=== PATIENT | female | born 1995 | race Caucasian/White ===

== ENCOUNTER 2023-06-16 18:03 | Outpatient (CLI) | payer OTHER ==
--- NOTE | 2023-06-18 13:06 | Ultrasound Report ---
PROCEDURE: Transvaginal INDICATIONS: PELVIC PAIN TECHNIQUE: Real-time endovaginal scanning was performed of the pelvic organs, with image documentation. COMPARISON: None. FINDINGS: Uterus: Uterus is anteverted and normal in size at 6.6 x 3.1 x 4.5 cm. The myometrium is heterogene ous. The endometrium measures 9.4 mm in combined thickness. Ovaries: The right ovary measures 2.7 x 1.9 x 2.5 cm, with a calculated ovarian volume of 6.8 cc. T he left ovary measures 4.0 x 2.2 x 3.2 cm, with a calculated ovarian volume of 14.5 cc. The ovaries have a normal sonographic appearance. Less than 12 follicles can be seen in each ovary. No adnexal masses are seen. There is a dominant 1.6 cm right ovarian follicle and a thick-walled 1.8 cm left ova mily cyst. Other: No pathologic free abdominal or pelvic fluid. IMPRESSION: 1. Thick-walled left ovarian cysts suggesting involuting follicular cyst. 2. Dominant right ovarian follicle within physiologic limits for size in a premenopausal female. Reviewed by: Suyapa Jones MD on 06/18/2023 1:05 PM PST Approved by: Suyapa Jones MD on 06/18/2023 1:05 PM PST Station ID: [id number]
== END 2023-06-16 18:04 | disposition home or self-care (01) ==
LOC: DI 18:03
PROVIDERS: ATTEND Nurse Practitioner Primary Care
DX: R10.2 Pelvic and perineal pain (principal); N83.202 Unspecified ovarian cyst, left side

== ENCOUNTER 2023-08-23 16:01 | Outpatient (CLI) | payer OTHER ==
[2023-08-23] MEDS ORDERED: iohexoL-300 100 ML VIAL ONE (16:20)
[2023-08-23] MEDS ORDERED: DIATRIZOATE MEGLU/DIATRIZO SOD 30 ML BOTTLE PO ONE (16:20)
[2023-08-23] MEDS: iohexoL-300 100 ML VIAL IVP ONE (21:01)
[2023-08-23] MEDS: DIATRIZOATE MEGLU/DIATRIZO SOD 30 ML BOTTLE PO ONE (21:02)
--- NOTE | 2023-08-24 11:46 | CT Report ---
PROCEDURE: Abdomen/Pelvis W INDICATIONS: NAUSEA AND BLOATING CONTRAST: Omni 300 100ml TECHNIQUE: After the administration of intravenous contrast, a CT scan of the abdomen and pelvis was performed. Images were recorded and evaluated at appropriate window settings. Reformats: coronal and sagittal. F or radiation dose reduction, the following was used: automated exposure control, adjustment of mA and /or kV according to patient size. COMPARISON: Pelvic ultrasound dated 06/16/2023. FINDINGS: Image quality: Diagnostic. Lower chest: Unremarkable. Liver: No solid mass. Gallbladder and biliary tree: Surgically absent. No biliary dilation, accounting for post-cholecystec marlyn state. Spleen: No splenomegaly. Pancreas: No pancreatic ductal dilation. Adrenals: No adrenal nodule. Kidneys and ureters: No hydronephrosis. No renal cystic lesion which requires follow up. No solid mas s. Stomach, bowel and peritoneum: There is no bowel obstruction. No abnormal bowel wall thickening or me senteric fat stranding. Appendix is visualized and is within normal limits. No abscess collection. No free fluid of free air. Lymph nodes: No central or retroperitoneal adenopathy. Subcentimeter lymph nodes are noted in right l ower quadrant mesentery measures up to 6 mm in size series 2 image 81. Vessels: No infrarenal aortic aneurysm. PELVIS Reproductive organs: Possible follicular cyst in right ovary is seen measures 1.5 x 1.1 cm in size. S mall left ovarian cyst measures 8 mm in size is also seen.. Bladder: No abnormal wall thickening, accounting for underdistention. Pelvic lymph nodes: No pelvic adenopathy by size criteria. Bones: No aggressive osseous abnormality. Other: No significant ventral or inguinal hernia. IMPRESSION: 1. Subcentimeter lymph nodes in right lower quadrant mesentery, which can be seen in the case of mese nteric adenitis suggest clinical correlation. 2. No bowel obstruction or abnormal bowel wall thickening. Normal appendix. No abscess collection. No free fluid of free air. 3. Small bilateral ovarian cysts as above which was better evaluated on previous pelvic ultrasound [facility]. Reviewed by: Rambo Pardo MD on 08/24/2023 11:45 AM PDT Approved by: Rambo Pardo MD on 08/24/2023 11:45 AM PDT Station ID: [id number]
== END 2023-08-23 16:02 | disposition home or self-care (01) ==
LOC: DI 16:01
PROVIDERS: ATTEND Nurse Practitioner Primary Care
DX: R10.9 Unspecified abdominal pain (principal); R11.0 Nausea; R14.0 Abdominal distension (gaseous); R59.0 Localized enlarged lymph nodes; N83.202 Unspecified ovarian cyst, left side; N83.201 Unspecified ovarian cyst, right side; Z90.49 Acquired absence of other specified parts of digestive tract
CPT/HCPCS: 74177; Q9963; Q9967

== ENCOUNTER 2023-10-13 19:30 | Emergency (ER) | payer OTHER ==
--- NOTE | 2023-10-13 20:53 | ED Physician Documentation ---
History of Present Illness - Stated complaint Stated Complaint: R LEG PX - Chief complaint Chief Complaint: Ext Problem - History obtained from History obtained from: Patient - Additonal information Additional information: 28yF p/w R anterior leg pain after baseball hit it at a baseball game. patient ambulatory without difficulty. pain is 3/10. has not taken any analgesia. denies numbness, weakenss PD PAST MEDICAL HISTORY - Past Medical History Past Medical History: No - Past Surgical History Past Surgical History: Yes General: Cholecystectomy - Allergies Allergies/Adverse Reactions: Allergies Allergy/AdvReac Type Severity Reaction Status Date / Time No Known Drug Allergies Allergy Verified 10/13/23 20:03 - Social History Does the pt smoke?: No Smoking Status: Never smoker Does the pt drink ETOH?: Yes Does the pt have substance abuse?: No PD ED PE NORMAL - Vitals Vital signs reviewed: Yes - General General: Alert and oriented X 3, No acute distress, Well developed/nourished - Derm Derm: Normal color, Warm and dry, Other (no swelling, ecchymosis) - Extremities Extremities: No deformity, No tenderness to palpate, Normal ROM s pain, No edema, Other (csm intact BL LE) Results - Vitals Vitals: Vital Signs - 24 hr 10/13/23 19:57 Temperature 36.8 C Heart Rate 100 Respiratory 16 Rate Blood Pressure 133/87 H O2 Saturation 100 Oxygen O2 Source Room air PD Medical Decision Making - ED course ED course: 28yF p/w R anterior leg pain s/p hit with baseball. low mechanism injury and patient is having mild pain only. exam is benign. Symptomatic care discussed. IM toradol given with improvement. return precautions given. Departure - Departure Disposition: 01 Home, Self Care Clinical Impression: Pain in extremity Condition: Stable Instructions: ED RICE Comments: You were seen in the the ED for baseball hit to the leg. On exam you are unlikely to have fracture. Please return to the ED for new or worsening symptoms or other concerns.
[2023-10-13] MEDS: KETOROLAC 30 MG/ML VIAL IM STA (20:55)
[2023-10-13 21:05] VITALS: BP 133/77; O2SAT 98
== END 2023-10-13 21:02 | disposition home or self-care (01) ==
LOC: ED 19:30
DX: M79.604 Pain in right leg (principal); W21.03XA Struck by baseball, initial encounter
CPT/HCPCS: 96372; 99282; 99283

== ENCOUNTER 2025-02-26 02:54 | Inpatient (IN) ==
[2025-02-26] MEDS ORDERED: LACTATED RINGERS 1,000 ML ONE (03:28)
[2025-02-26 04:04] LABS: HCT - HEMATOCRIT 36.4 % (37.0-47.0); HGB - HEMOGLOBIN 11.8 g/dL (12.0-16.0); MEAN PLATELET VOLUME 11.5 fL (7.9-10.8); NRBC ABSOLUTE COUNT (AUTO) 0.00 x10^3/uL; NUCLEATED RED BLOOD CELLS AUTO 0.0 /100WBC; PLT - PLATELET COUNT 227 10^3/uL (130-450); RED CELL DISTRIBUTION WIDTH 15.7 % (12.0-15.0)
[2025-02-26] MEDS: LACTATED RINGERS 1,000 ML IV ONE (04:30)
[2025-02-26 04:52] LABS: ALT ALANINE AMINOTRANSFERASE 11.0 IU/L (10-60); AST ASPARTATE AMINOTRANSFERASE 13.0 IU/L (10-42); BUN - BLOOD UREA NITROGEN 8.0 mg/dL (6-20); CARBON DIOXIDE - CO2 17.0 mmol/L (21-32); CREATININE 0.5 mg/dL (0.6-1.3); GFR - MDRD 147.0 (>89)
[2025-02-26] MEDS: MORPHINE 10 MG/ML VIAL IM ONE (05:13)
[2025-02-26 06:30] LABS: RUPTURE OF MEMBRANES PLUS POSITIVE (NEGATIVE)
[2025-02-26] MEDS ORDERED: fentaNYL 100 MCG/2 ML VIAL IVP PRN ×2 (06:35→13:42)
[2025-02-26] MEDS ORDERED: hydrALAZINE INJ 20 MG/ML VIAL IVP PRN ×3 (06:35→13:34)
[2025-02-26] MEDS ORDERED: OXYTOCIN/SODIUM CHLORIDE 500 ML IV PRN ×2 (06:35→13:34)
[2025-02-26] MEDS ORDERED: TRANEXAMIC ACID IN NACL 1,000 MG/100 ML BAG IV PRN (06:35)
[2025-02-26] MEDS ORDERED: LABETALOL 20 MG/4 ML SYRINGE IVP PRN ×6 (06:35→13:34)
[2025-02-26] MEDS ORDERED: METHYLERGONOVINE 0.2 MG/ML VIAL IM PRN (06:35)
[2025-02-26] MEDS ORDERED: OXYTOCIN 10 UNIT/ML VIAL IM PRN (06:35)
[2025-02-26] MEDS ORDERED: TERBUTALINE 1 MG/ML VIAL SUBQ PRN (06:35)
[2025-02-26] MEDS ORDERED: CARBOPROST TROMETHAMINE 250 MCG/ML VIAL IM PRN (06:35)
[2025-02-26] MEDS: LACTATED RINGERS 1,000 ML IV SCH (06:59)
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
[2025-02-26] MEDS: AMPICILLIN 2 GM in SODIUM CHLORIDE 0.9% MINIBAG 100 ML IV ONE (07:07)
[2025-02-26] MEDS ORDERED: ROPIVACAINE 0.2% 200 MG/100 ML BAG EP ONE (07:09)
[2025-02-26] MEDS ORDERED: NALBUPHINE 10 MG/ML AMP IVP PRN (08:12)
[2025-02-26] MEDS ORDERED: NALOXONE 0.4 MG/ML VIAL IVP PRN ×3 (08:12→13:42)
[2025-02-26] MEDS ORDERED: ROPIVACAINE 0.2% 200 MG/100 ML BAG EP PRN (08:12)
[2025-02-26] MEDS ORDERED: METOCLOPRAMIDE 10 MG/2 ML VIAL IVP PRN (08:12)
--- NOTE | 2025-02-26 08:17 | ANESTHESIA PROCEDURE NOTE ---
Pre-Anesthesia VS, & Labs Diagnosis Surgical Diagnosis:: labor pain Procedure Procedure: epidural or Vitals Vital Signs: Temp Pulse Resp BP Pulse Ox 37.2 C 132 H 14 130/64 100 02/26/25 05:06 02/26/25 06:50 02/26/25 06:50 02/26/25 06:50 02/26/25 05:06 NPO Last Fluid Intake: t/o noc Is Patient ?: Yes Lab Results Current Lab Results: Laboratory Tests 02/26/25 04:26: Sodium 133 L, Potassium 3.8, Chloride 106, Carbon Dioxide 17 L, Anion Gap 10.0, BUN 8, Creatinine 0.5 L, Estimated GFR (MDRD) 147, Glucose 124 H , Calcium 9.0, Total Bilirubin 0.4, AST 13, ALT 11, Alkaline Phosphatase 190 H, Total Protein 6.1 L, Albumin 3.3, Globulin 2.8, Albumin/Globulin Ratio 1.2, Blood Type A POSITIVE, Antibody Screen NEGATIVE 02/26/25 03:50: WBC 18.2 H, RBC 4.49, Hgb 11.8 L, Hct 36.4 L, MCV 81.1, MCH 26.3 L, MCHC 32.4, RDW 15.7 H, Plt Count 227, MPV 11.5 H, Neut # (Auto) 16.4 H, Lymph # (Auto) 1.1 L, Upson # (Auto) 0.5, Eos # (Auto) 0.0, Baso # (Auto) 0.0, Absolute Nucleated RBC 0.00, Nucleated RBC % 0.0 Lab results reviewed: Yes 02/26/25 03:50 02/26/25 04:26 Meds/Allgy Home Medications Ambulatory Orders Medication Instructions Recorded Confirmed vits no.126-ferrous fum 1 tab PO DAILY 02/24/25 28 mg iron-folic acid 800 mcg tablet (Classic ) aspirin 81 mg tablet,delayed 81 mg PO QDAY #90 tabs 02/24/25 release (Adult Aspirin Regimen) inulin-sorbitol 2 gram chewable 2 tab PO DAILY 5 02/24/25 tablet (Fiber Supplement (inulin)) valacyclovir 500 mg tablet 500 mg PO BID #60 tabs 02/0302/24/25 Allergies Allergies Allergy/AdvReac Type Severity Reaction Status Date / Time No Known Drug Allergies Allergy Verified 02/24/25 16:58 PFSH Active Problems All Active Problems (Updated 02/19/25 @ 08:56 by RAMY Terrell) Uterine size date discrepancy (Acute) Elevated blood pressure reading in office without diagnosis of hypertension (Acute) UTI (urinary tract infection) (Acute) Pleurisy (Acute) Cramping affecting , antepartum (Acute) SHAMIKA gene mutation positive (Acute) Supervision of normal (Acute) PTSD (post-traumatic stress disorder) (Acute) Anxiety (Acute) Medical History Medical History (Updated 02/19/25 @ 08:56 by RAMY Terrell) Depression Surgical History Surgical History History of cholecystectomy Family History Family History (Updated 07/19/24 @ 14:54 by Kelly Otoole RN) Father Mental disorder Alcoholism Asthma Sister Mental disorder Brother Depressed Mental disorder Anxiety Mother Cervical cancer Fibromyalgia Rheumatoid arthritis Heart failure Maternal grandmother Diabetes Aunt Breast cancer Social History Social History Smoking Status: Never smoker Do you dip or chew tobacco?: No Do you vape?: No Patient requests smoking cessation consult: No Initiate information on smoking cessation: No Do you feel safe in your home environment?: Yes History of physical, verbal, emotional, or financial abuse?: No ETOH Use: None Frequency: Occasional Substance Use: denies use Anesthesia Exam (Expanded) Exam General: Alert, Oriented x3, Cooperative and Mild distress Dental: WNL Mallampati classification: II Thyromental Distance: 4-6 cm Respiratory: No respiratory distress Cardiovascular: Regular rate Mental/Cognitive Status: Alert/Oriented X3 and Normal for patient Exam Exam Vital Signs: Vital Signs x48h Temp Pulse Pulse Resp BP BP Pulse Ox 02/26/25 06:50 132 H 14 130/64 02/26/25 05:06 37.2 C 100 16 137/94 H 100 02/26/25 04:35 37.1 C 112 H 18 130/72 02/26/25 03:00 37.1 C 112 H 18 133/72 H Plan Plan Anesthesia Type: Epidural Consent for Procedure(s) Verified and Reviewed: Yes Code Status: Attempt Resuscitation ASA Classification ASA classification: 2-Mild systemic disease Is this case an emergency?: No
[2025-02-26] MEDS: SODIUM CHLORIDE FLUSH 0.9% 10 ML SYRINGE IVP PRN (08:26)
[2025-02-26] MEDS: ONDANSETRON 4 MG/2 ML VIAL IVP PRN (08:26)
--- NOTE | 2025-02-26 10:23 | PROVIDER PROGRESS NOTE ---
HPI Current : Vital Signs Temperature 99.0 F 02/26/25 05:06 Pulse Rate 132 H 02/26/25 06:50 Respiratory Rate 14 02/26/25 06:50 Blood Pressure 130/64 02/26/25 06:50 O2 Saturation 100 02/26/25 05:06 Procedures NST Procedure: NST Procedure Start Date 02/26/25 Start Time 03:06 Stop Time 03:28 Vibroacoustic Stimulation Used No Patient States Movement Yes Plan Plan: Date of encounter: 02/25/2025 Time of encounter: 2139 Alessia presents to [facility] with c/o contractions that are difficult to cope with. She denies vaginal bleeding or leakage of fluid. She reports +FM. SVE 1/70/-3 FHR baseline 140s, moderate variability, + accels, no decels Contractions palpate moderate every 3-5 minutes with soft resting tone Repeat SVE in 1.5hrs reveals no cervical change. Administered 25mg promethezine and discharged home with precautions. Assessment: 29yo @ 38.4wks gestation False labor >37wks gestation FHR Category I Plan: Pt discharged home with precautions. Pt has emergency contact number.
[2025-02-26] MEDS: ACETAMINOPHEN 500 MG TABLET PO PRN (10:24)
[2025-02-26] MEDS: AMPICILLIN 1 GM in SODIUM CHLORIDE 0.9% MINIBAG 100 ML IV SCH (11:07)
[2025-02-26] MEDS ORDERED: ceFAZolin (2G) 2 GM in SODIUM CHLORIDE 0.9% MINIBAG 100 ML IV ONE (11:24)
[2025-02-26] MEDS ORDERED: CITRIC ACID/SODIUM CITRATE 15 ML UDC PO ONE (11:24)
[2025-02-26] MEDS: LACTATED RINGERS 500 ML IV ONE (11:46)
[2025-02-26] MEDS ORDERED: CARBOPROST TROMETHAMINE 250 MCG/ML VIAL IM ONE (11:52)
[2025-02-26] MEDS ORDERED: METHYLERGONOVINE 0.2 MG/ML VIAL ONE (11:52)
[2025-02-26] MEDS: CALCIUM CARBONATE CHEW 500 MG TABLET PO SCH (11:52)
[2025-02-26] MEDS ORDERED: LIDOCAINE 2%-EPI 1:100000 20 ML MDV ONE (11:55)
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
[2025-02-26] MEDS ORDERED: DEXMEDETOMIDINE 200 MCG/2 ML VIAL ONE (12:15)
[2025-02-26] MEDS ORDERED: ONDANSETRON 4 MG/2 ML VIAL ONE (12:25)
[2025-02-26] MEDS ORDERED: KETOROLAC 30 MG/ML VIAL ONE (12:55)
[2025-02-26] MEDS ORDERED: MORPHINE PF 5 MG/10 ML VIAL ONE (12:56)
[2025-02-26] MEDS: LACTATED RINGERS 1,000 ML IV PRN (13:28)
[2025-02-26] MEDS: ePHEDrine 50 MG/ML VIAL IVP PRN (13:32)
[2025-02-26] MEDS ORDERED: WITCH HAZEL/GLYCERIN 1 PAD TOP PRN (13:34)
[2025-02-26] MEDS ORDERED: ONDANSETRON 4 MG/2 ML VIAL IVP PRN ×2 (13:34→13:42)
[2025-02-26] MEDS ORDERED: HYDROCORTISONE 1% CREAM 28 GM TUBE TOP PRN (13:34)
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
[2025-02-26] MEDS ORDERED: ATROPINE ABBOJECT 1 MG/10 ML SYRINGE IVP PRN (13:42)
[2025-02-26] MEDS ORDERED: MORPHINE 2 MG/ML CARPUJECT IVP PRN (13:42)
[2025-02-26] MEDS ORDERED: HYDROmorphone 0.5 MG/0.5 ML SYRINGE IVP PRN (13:42)
[2025-02-26] MEDS ORDERED: LACTATED RINGERS 1,000 ML IV SCH (14:00)
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
--- NOTE | 2025-02-26 15:13 | ANESTHESIA POST OP EVALUATION ---
Anesthesia Post Eval Post Anesthesia Eval Vitals: Last Vital Signs Temp 37.2 C 02/26/25 14:12 Pulse 99 02/26/25 14:12 Resp 17 02/26/25 14:12 BP 96/45 L 02/26/25 14:12 Pulse Ox 95 02/26/25 14:12 CV Function Including HR & BP: Stable Pain Control: Satisfactory Nausea & Vomiting: Negative Mental Status: Baseline Respiratory Status: Airway Patent Hydration Status: Satisfactory Anesthesia Complications: None
--- NOTE | 2025-02-26 16:01 | PHARMACY PROGRESS NOTE ---
Best Possible Medication History Admit Date and Time: 02/26/25 0635 Home Medications Medication Instructions Recorded Confirmed Type vits no.126-ferrous fum 1 tab PO DAILY 02/26/25 History 28 mg iron-folic acid 800 mcg tablet (Classic ) inulin-sorbitol 2 gram chewable 2 tab PO DAILY PRN con stipation 10/17/24 02/26/25 History tablet (Fiber Supplement (inulin)) valacyclovir 500 mg tablet 500 mg PO BID #60 tabs 02/0302/26/25 Rx aspirin 81 mg tablet,delayed 81 mg PO DAILY 02/26/25 0 02/26/25 History release (Adult Aspirin Regimen) Processed by: Pharmacy (Medication reconciliation completed by Paint PreparerNorma) Medications reviewed in ED?: No Medication History completed: Yes Patient Interview: Completed Secondary Source(s): Insurance records [facility] Statement: As the person ultimately responsible for medication therapy, providers are able to order a medication from an existing home medication list in [facility] via the "Reconcile Routine" prior to Confirmation of that medication by net application support specialist. Such practice is discouraged except when the physician, in their clinical judgment, deems that a medical need exists for a medication without regard to previous use.
[2025-02-26] MEDS: ACETAMINOPHEN 500 MG TABLET PO SCH (16:25)
[2025-02-26] MEDS: SIMETHICONE CHEW 80 MG TABLET PO PRN (16:26)
[2025-02-26] MEDS: KETOROLAC 30 MG/ML VIAL IVP SCH (19:32)
[2025-02-26] MEDS: DOCUSATE SODIUM 100 MG CAPSULE PO SCH (21:41)
[2025-02-27 06:47] LABS: HCT - HEMATOCRIT 28.3 % (37.0-47.0); HGB - HEMOGLOBIN 9.1 g/dL (12.0-16.0); MEAN PLATELET VOLUME 11.2 fL (7.9-10.8); PLT - PLATELET COUNT 185.0 10^3/uL (130-450); RED CELL DISTRIBUTION WIDTH 16.1 % (12.0-15.0)
[2025-02-27] MEDS: IBUPROFEN 600 MG TABLET PO SCH (09:07)
[2025-02-27] MEDS: CALCIUM CARBONATE CHEW 500 MG TABLET PO PRN (13:56)
[2025-02-27] MEDS: oxyCODONE 5 MG TABLET PO PRN (20:53)
--- NOTE | 2025-02-27 21:08 | PROVIDER PROGRESS NOTE ---
Progress Note Progress Note Progress Note: POD #1 s/p c section. doing well. Up walking, voiding, pain controlled. was going to take a shower. no symtpoms of her anemia. VSS abdomen soft, appropriately tender. wound healing well. Bandage removed. extremities with some edema, not tender. hct 28% A/P pod 1 doing well. probably should be able to dc tomorrow. Oral iron started. I don't think she needs iv iron as not sx.
[2025-02-28 03:48] VITALS: O2SAT 98
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
[2025-02-28 15:54] VITALS: BP 126/75; TEMP 98.2
--- NOTE | 2025-02-28 16:06 | Labor Flowsheet ---
Labor Flowsheet Datetime Report Generated by CPN: 02/28/2025 16:06 Datetime: 02/28/2025 15:22 VITAL SIGNS NBP Sys/Erin/Mean (mmHg): 126 : 75 : 87 Pulse: 87 Datetime: 02/27/2025 20:50 SpO2 (%): 99 Datetime: 02/26/2025 14:47 Stage of : Recovery Datetime: 02/26/2025 12:02 Patient Care Comments: Vaginal prep completed by RN in room. Datetime: 02/26/2025 12:00 UTERINE ACTIVITY Monitor Mode: External Frequency (min): 3-5 Duration (sec): 55-70 ASSESSMENT A Monitor Mode: Telemetry FHR Baseline Rate : 170 FHR Baseline Changes: Tachycardia Variability: Moderate 6-25 bpm Accelerations: None Decelerations: None Category: Category II LaborFlag: Labor Datetime: 02/26/2025 11:30 Monitor Interventions for UA: [place] Adjusted Datetime: 02/26/2025 11:26 Communication Comments: pt gives verbal consent for c/s. team infromed Datetime: 02/26/2025 11:07 MEDICATIONS Antibiotics: Ampicillin IV 1 Gm Datetime: 02/26/2025 11:04 Membranes Ruptured Date/Time: 02/26/2025 06:05 Membranes Rupture Method: Spontaneous Amniotic Fluid Color: Clear Amniotic Fluid Amount: Moderate Amniotic Fluid Odor: Normal Datetime: 02/26/2025 11:02 Medication Comments: LR @ 125 Datetime: 02/26/2025 10:45 I/O Interventions: Roche Cath Inserted Datetime: 02/26/2025 10:40 Actions for Decelerations: IV Bolus Datetime: 02/26/2025 10:38 Patient Position/Activity: Right Lateral Datetime: 02/26/2025 10:30 Respirations: 18 Temperature (C): 37.1 Temperature Route: Oral Datetime: 02/26/2025 10:28 VAGINAL EXAM Dilatation (cm): 5.0 Effacement (%): 100 Station: -3 Exam by: VALARIE Zepeda Vaginal Exam Comments: VALARIE Zepeda at bedside Datetime: 02/26/2025 10:00 Comments: poor FHT d/t maternal position. unable to determine d/t maternal position Datetime: 02/26/2025 09:58 Epidural Procedure: Test Dose Datetime: 02/26/2025 09:43 ANESTHESIA Epidural Positioning: Sitting Anesthesia Comments: epidural replacement Datetime: 02/26/2025 09:20 Vital Sign Comments: pt states she still feels feverish Datetime: 02/26/2025 08:45 Monitor Interventions for FHR: Ultrasound Adjusted Datetime: 02/26/2025 08:26 Antiemetics/Antacids: Zofran (mg) @ 4 Datetime: 02/26/2025 07:30 Contraction Comments: toco adjusted. unable to determine d/t maternal positiopn for epidural Datetime: 02/26/2025 06:55 PATIENT CARE Oxygen Method: Room Air Datetime: 02/26/2025 06:50 Provider Reviewed Strip: Yes COMMUNICATION Communication: RN at Bedside; Provider at Bedside Provider Notified (Name): kylah de la cruz Notification Reason: Labor Status; Membrane Status; Uterine Activity; Pain Datetime: 02/26/2025 06:25 Quality: Moderate Pattern: Normal: <= 5 Contractions in 10 Minutes Resting Tone (Palpate): Relaxed Datetime: 02/26/2025 05:19 PAIN Pain Scale: 8 Pain Presence: Intermittent Pain Type: Cramping; Contraction Pain Location: Abdomen; Back Pain Goal: 4 Pain Relief Measures: Pain Medication Given; Comfort Measures Pain Coping: Requesting Pain Medication or Epidural Pain Assessment Comments: nitrous, IM morphine Comfort Measures: Breathing/Relaxation; Family Support Hygiene: Peripad Changed Datetime: 02/26/2025 03:16 Strip Reviewed by: Radha Martínez
== END 2025-02-28 15:45 | disposition home or self-care (01) | DRG 788 ==
LOC: WFO 02:54 → FBP 02:54
PROVIDERS: ADMIT Nurse Practitioner Obstetrics & Gynecology; ATTEND Nurse Practitioner Obstetrics & Gynecology
DX: O13.4 Gestational [pregnancy-induced] hypertension without significant proteinuria, complicating childbirth; O76 Abnormality in fetal heart rate and rhythm complicating labor and delivery; Z3A.38 38 weeks gestation of pregnancy; F32.A Depression, unspecified; O75.89 Other specified complications of labor and delivery; O99.344 Other mental disorders complicating childbirth; F41.9 Anxiety disorder, unspecified; O99.824 Streptococcus B carrier state complicating childbirth; Z37.0 Single live birth; R00.0 Tachycardia, unspecified; O99.214 Obesity complicating childbirth